=== PATIENT | female | born 1995 | race Two or more races ===

== ENCOUNTER 2020-11-07 02:19 | Observation (INO) | payer MEDICAID, OTHER ==
[~2020-11-07] VITALS: Ht 152.4 cm; Wt 68.9 kg
[2020-11-07] MEDS ORDERED: LACTATED RINGER'S 1,000 ML IV ONE (02:45)
[2020-11-07] MEDS ORDERED: LACTATED RINGER'S 1,000 ML IV SCH (02:45)
[2020-11-07] MEDS: TERBUTALINE SULFATE 1 MG/ML 1ML VIAL SC SCH ×3 (03:14→04:00)
[2020-11-07 03:30] LABS: Urine Bacteria MANY /hpf (None Seen); Urine Blood 1+ /uL (Negative); Urine Hyaline Cast FEW /lpf (0 - 2); Urine Mucus FEW (None Seen); Urine Specific Gravity 1.018 (1.001-1.035); Urine WBC 38 /hpf (0 - 5)
[2020-11-07 03:34] LABS: Alcohol, Urine < 3.0 mg/dL (0-10); Amphetamine Screen, Urine NEGATIVE (NEGATIVE); Barbiturate Scree,Urine NEGATIVE (NEGATIVE); Benzodiazephine Screen, Urine NEGATIVE (NEGATIVE); Cannabinoid Screen, Urine NEGATIVE (NEGATIVE); Cocaine Screen, Urine NEGATIVE (NEGATIVE); Opiate Scree,Urine NEGATIVE (NEGATIVE); Phencyclidine Screen, Urine NEGATIVE (NEGATIVE)
[2020-11-07] MEDS ORDERED: NIFEdipine 10 MG CAP PO ONE (04:30)
== END 2020-11-07 06:28 | disposition home or self-care (01) ==
LOC: LDRP 02:19
PROVIDERS: ADMIT Obstetrics & Gynecology; ATTEND Obstetrics & Gynecology
DX: O60.03 Preterm labor without delivery, third trimester (principal); O26.893 Other specified pregnancy related conditions, third trimester; N89.8 Other specified noninflammatory disorders of vagina; Z3A.36 36 weeks gestation of pregnancy; Z79.899 Other long term (current) drug therapy
CPT/HCPCS: 59025; 76805; 76817; 80307; 81001; 81002; 94760; 96360; 96361; 96372; G0378